=== PATIENT | male | born 1980 | race Hispanic/Latino ===

== ENCOUNTER 2020-08-11 11:38 | Emergency (ER) | payer OTHER ==
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
[2020-08-11] MEDS ORDERED: LIDOCAINE JELLY 2%- 5 ML TUBE ONE (13:15)
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
[2020-08-14 14:25] VITALS: TEMP 97.6
[2020-08-14 14:26] VITALS: BP 175/102; O2SAT 97
== END 2020-08-11 14:17 | disposition home or self-care (01) ==
LOC: ER 11:38
PROC: 0JQ00ZZ Repair Scalp Subcutaneous Tissue and Fascia, Open Approach (ICD-10-PCS; principal; 2020-08-11)
DX: S01.01XA Laceration without foreign body of scalp, initial encounter (principal); X58.XXXA Exposure to other specified factors, initial encounter; Y93.9 Activity, unspecified; Y92.89 Other specified places as the place of occurrence of the external cause
CPT/HCPCS: 70450; 72125; 99284